=== PATIENT | female | born 1985 | race Hispanic/Latino ===

== ENCOUNTER → 2018-05-18 12:45 | Outpatient (CLI) | payer OTHER, SELFPAY ==
[2018-05-18 11:00] VITALS: BMI 27.3
[2018-05-21 09:51] LABS: HPV APTIMA, High Risk Negative (Negative)
--- OUTSIDE RECORDS SUMMARY | 2018-07-20 15:43 | XMS RPT_ITS ---
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 [place] [address] OFFICE VISIT Date of Service: 05/18/18 MR#: [id number] Acct: [id number] Name: GISSEL PATEL Rep #: [id number] : 1985 Provider: CINDY Velasquez Age/Sex: 33/F [place] [facility] Status: Signed Intake Vital Signs05/18/18 Body Mass Index (BMI) 26.4 05/18/18 Height 5 ft 5 in 05/18/18 Weight: 164 lb 2 oz 05/18/18 Body Mass Index (BMI) 27.3 05/18/18 Blood Pressure 134/74 H Intake Visit Reasons: ANNUAL EXAM, r/s from 05/12 as pt was late Maple Products Maker Required: No Is patient in pain?: No Allergies No Known Allergies Allergy (Verified 05/18/18 10:55) Medications levonorgestrel 0.15 mg-ethinyl estradiol 30 mcg tablets,3 month pack 1 tab PO DAILY #84 tab 05/18/18 [Rx Confirmed 05/18/18] Is last menstrual period known: Yes Last Menstral Period: 04/29/18 Post menopausal: No Patient : No : No PFSH Medical History GERD (gastroesophageal reflux disease) (Acute) Surgical History Nose abnormality (Acute) Family History Grandmother Diabetes Hypertension Father Hypertension Social History current occupational status: employed, student 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 She is planning to stop OCP in June to attempt Last PAP: 2013 History of abnormal PAP: no She is from [place], some language barrier for expression but comprehends well. 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 He also works at [employer]. She has never been . He also does not have other children. Female Reproductive History Last Menstral Period: 04/29/18 Questions: Metorrhagia: No, Sexually active: Yes, Dyspareunia: No, PCB: No ROS Const Constitutional: Denies fatigue, weight gain or weight loss Cardio Card: Denies chest pain Resp Resp: Denies cough or shortness of breath with activity GI GI: Denies abdominal pain, constipation, change in stools, vomiting or bloating : Reports as per HPI; denies urinary frequency, pelvic pain, urinary urgency, vaginal discharge, vaginal itching, urinary incontinence or difficulty urinating Exam Const General: cooperative, healthy appearing, no acute distress, well developed Orientation: alert, oriented to person, oriented to place HENWY Head: normal to inspection Neck Neck: normal visual inspection Thyroid: thyroid normal Lymphatic: no lymphadenopathy noted Chest Breast inspection: normal inspection of the breasts, normal inspection of the axillae Breast palpation: normal palpation of the breasts, normal palpation of the axillae, no axillary lymphadenopathy Resp Effort AND Inspection: normal respiratory effort GI Palpation: soft, nontender, no masses Rectal Exam: deferred External Female Exam: normal external appearance, normal appearance of the urethra Urethra: normal appearance of the urethra, normal palpation Speculum Exam - Vagina: normal appearance of the vagina, normal vaginal discharge Speculum Exam - Cervix: normal appearance of the cervix Bimanual Exam- Vagina AND Uterus: normal bimanual exam, uterine size normal, uterine shape normal, uterus non-tender Bimanual Exam- Adnexa, other: normal adnexae, no adnexal masses, adnexae non-tender, pelvic support normal Pelvic Support: normal Neuro General: alert, oriented x3 Psych Affect: normal affect Assessment AND Plan Problems 1. Encounter for gynecological examination without abnormal finding Z01.419 2. Pap smear for cervical cancer screening Z12.4 3. Encounter for surveillance of contraceptive pills Z30.41 Plan Completed breast and pelvic exam Reviewed diet and exercise Pap thin prep pap with HPV Contraception continue OCP at this time and start vitamin when stops OC Call if no menses after 6 weeks and negative home UPT. RTO 1 year, prn with problems Aliza Velasquez CNP Orders Orders: Medications Refilled: Coding Level of Care Code Off vis,est,prev 18-39yrs Diagnoses Encounter for gynecological examination without abnormal finding Z01.419 Gynecological examination findings: abnormal findings ABSENT Pap smear for cervical cancer screening Z12.4 Encounter for surveillance of contraceptive pills Z30.41 Contraceptive encounter type: surveillance Contraceptive type: pill 05/18/18 1326 <Electronically signed by Aliza BARAJAS> Date Aliza CARTERC Cosigner Signature: Date (if applicable) CC: PAP IG HPV APTIMA Collected: 05/18/2018 Status: F Source: [place] 16/18,45 11:45 AM [facility] REPOSITORY Order Comment: CYTOLOGY INFORMATION: - CLINICAL INFORMATION: - DATE LMP/MENOPAUSE: 04/29/18 - COLLECTION VIAL: Thin Prep Vial - SMUDGER SOURCE: CERVICAL - COLLECTION TECHNIQUE: BRUSH/SPATULA Specimen Comment: [id number] Specimen Comment: Source.............Cervix Specimen Comment: LMP / Prev Treat...[id number]=[id number] Specimen Comment: No. of containers..01 ThinPrep Vial TYPE CODE TESTS RESULT OUT OF RANGE REFERENCE UNITS LAB L7400.0800 . Normal DIAGN Comment Result Comment: NEGATIVE FOR INTRAEPITHELIAL LESION OR MALIGNANCY. LAB L7400.0900 . Normal ADEQ Comment Result Comment: Satisfactory for evaluation. Endocervical and/or squamous metaplastic cells (endocervical component) are present. LAB L7400.1400 . Normal PERFORM Comment Result Comment: Bing Sims, Hoop Riveter (ASCP) LAB L7400.2575 . Normal TEST METHOD Comment Result Comment: This liquid based ThinPrep(R) pap test was screened with the use of an image guided system. LAB L7400.2600 . Normal . COMM LAB L7400.2700 . Normal PAPSMR Comment Result Comment: The Pap smear is a screening test designed to aid in the detection of premalignant and malignant conditions of the uterine cervix. It is not a diagnostic procedure and should not be used as the sole means of detecting cervical cancer. Both false-positive and false-negative reports do occur. LAB L7400.2760 Negative Normal HPV APTIMA, Negative HR Result Comment: This test detects fourteen high-risk HPV types (16/18/31/33/35/39/45/ 51/52/56/58/59/66/68) without differentiation. Performed at: - [facility] [id number] Light Armored Vehicle Officer: Neris Apple MD, Phone: [phone] Performed at: =G - [facility] [address] [id number] Light Armored Vehicle Officer: Neris pAple MD, Phone: [phone] Performed By: #### L7400.0280 #### [facility] (refer to report for specific site) refer to report for address and phone number URGENT CARE VISIT Observed: 05/05/2018 Status: F Source: [place] REPORT 4:54 PM [facility] REPOSITORY [facility] [address] [place] [address] OFFICE VISIT Date of Service: 05/05/18 MR#: [id number] Acct: [id number] Name: GISSEL PATEL Rep #: [id number] : 1985 Provider: John BEATTY Age/Sex: 33/F Location: [facility] Status: Signed Intake Vital Signs05/05/18 Height 5 ft 5 in Intake Visit Reasons: COUGH X 1 MONTH Chief Complaint: Persistant cough Maple Products Maker Required: No Accompanied by: self Allergies No Known Allergies Allergy (Unverified 05/05/18 16:49) Medications levonorgestrel 0.15 mg-ethinyl estradiol 30 mcg tablets,3 month pack 1 tab PO DAILY #84 tab 03/03/18 [Rx Confirmed 05/05/18] azithromycin 250 mg tablet 250 mg PO QDAY #6 tab 05/05/18 [Rx Confirmed 05/05/18] PFSH Medical History GERD (gastroesophageal reflux disease) (Acute) Surgical History Nose abnormality (Acute) Social History current occupational status: employed, student 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 HPI Chief Complaint: Persistant cough Details: GISSEL CHOUDHARY, is a 33 F who presents to the office today for initial evaluation approximately 1 month history of progressively worsening cough, which patient notes is now productive of yellow-green phlegm and is worse at night when lying down. She notes occasional chills though no complaints of fever, sweats, rash, chest pain/shortness of breath/wheezing, or drooling. She is a non-smoker noting no other members in household with similar complaints. She has taken no [id number] products to assist with symptoms. She notes no other associated symptoms and no other alleviating or aggravating factors. ROS Const Constitutional: No other (ROS negative x10 other than as noted above) Exam Const General: cooperative, healthy appearing, no acute distress, comfortable Nutritional Appearance: average body habitus Orientation: alert, awake, oriented x3 HENMT Head: normal to inspection Ears: hearing grossly normal bilaterally, external ears normal, TM's normal bilaterally, EAC's normal Nose: external nose normal, nares normal, septum normal, no nasal discharge Face and sinus: normal facial exam, sinuses nontender, face symmetric Mouth: tongue normal, lip normal, oral mucosae normal Teeth and gingiva: gingiva normal, dentition normal Throat: uvula midline, tonsils normal, posterior oropharynx normal, no postnasal drainage Eyes General: appearance normal, both eyes and all related structures Neck Neck: normal visual inspection, full ROM, no lymphadenopathy, no meningeal signs, supple Neck mass: No Thyroid: thyroid normal Lymphatic: no lymphadenopathy noted Chest Chest palpation AND inspection: normal inspection of the chest Resp Effort AND Inspection: normal respiratory effort, able to speak in complete sentences, symmetric chest movement, cough Quality of cough: wet (Nonproductive in office today) Auscultation: Bilateral: Clear to Auscultation Cardio Palpation: normal PMI Rate: regular rate Rhythm: regular rhythm Heart Sounds: S1 normal, S2 normal, no gallops, no murmurs, no rubs Pulses: radial pulses present GI Inspection: normal to inspection Palpation: soft, no hepatosplenomegaly Skin General: no rashes or lesions noted Neuro General: alert, awake, oriented x3, gait normal Cognition: normal cognition Speech: speech normal Gait: normal gait Motor: muscle tone normal throughout Sensory Exam: no sensory deficits noted Psych Appearance: grossly normal Mental Status: mental status grossly normal Mood: congruent mood Affect: normal affect Speech and Movement: speech and movement normal Attitude: cooperative Thought Process: normal Thought Content: normal Judgment: judgment good Assessment AND Plan Problems 1. Bronchitis J40 Plan Azithromycin as prescribed today. Clear, rest, Advil/Tylenol as needed for symptomatic relief. Avoid tobacco smoke exposure. Follow-up with PCP in 3-5 days should symptoms not improve, sooner should symptoms worsen or any other concerns develop. Patient states acknowledging understanding all the above. This note was generated with Instinctivation software. It may contain incorrect words, spelling, and punctuation that were not noted in checking the note before signing. 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 [place] [address] OFFICE VISIT Date of Service: 03/03/18 MR#: [id number] Acct: [id number] Name: GISSEL PATEL Rep #: [id number] : 1985 Provider: CINDY Velasquez Age/Sex: 32/F [place] [facility] Status: Signed Intake Vital Signs03/03/18 Height 5 ft 6 in 03/03/18 Weight: 166 lb 03/03/18 Body Mass Index (BMI) 26.8 03/03/18 Blood Pressure 120/80 Intake Visit Reasons: irregular period - lasting 2 weeks so far Maple Products Maker Required: No Is patient in pain?: No Allergies No Known Allergies Allergy (Unverified 03/03/18 10:23) Medications levonorgestrel 0.15 mg-ethinyl estradiol 30 mcg tablets,3 month pack 1 tab PO DAILY #84 tab 03/03/18 [Rx Confirmed 03/03/18] Is last menstrual period known: Yes Last Menstral Period: 02/18/18 Post menopausal: No Patient : No : No PFSH Medical History GERD (gastroesophageal reflux disease) (Acute) Surgical History Nose abnormality (Acute) Social History current occupational status: employed, student 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 She has stopped and started her pills 3 times over last 5 months to take only while he is home. Prior to this had regular menses. She is again in first pack, 3rd week and has had spotting most of month. She took OCP in December, skipped a cycle and then restarted with this one. Female Reproductive History Last Menstral Period: 02/18/18 Pregancy History 0 Elective abortions Hx Para Spontaneous abortions ROS Const Constitutional: Reports system reviewed and no additional complaints, except as docu GI GI: Denies abdominal pain or change in bowel habits Exam Const General: no acute distress Nutritional Appearance: well nourished Orientation: oriented x3 Assessment AND Plan Problems 1. Irregular menses N92.6 2. Encounter for surveillance of contraceptive pills Z30.41 Plan Discussed with patient that starting and stopping OCP will cause her to have irregular menses. Stop current pack, start new pack this Thursday. Condoms now and next 2 weeks and encouraged to continue pills until she decides to attemp . They may consider next year. Start PNV if stops OCP RTO for follow up and annual exam in Apr 2018 20 min FTF counseling with patient. Medications New: Coding Level of Care Code Off vis,new,level 3 Diagnoses Irregular menses N92.6 Encounter for surveillance of contraceptive pills Z30.41 Contraceptive type: pill Contraceptive encounter type: surveillance 03/03/18 1242 <Electronically signed by Aliza BARAJAS> Date Aliza BARAJAS Cosigner Signature: Date (if applicable) CC: ALLERGIES ALLERGIES DATE TYPE / CODE NAME / CODE REACTION SEVERITY SOURCE 05/18/2018 Drug No Known Unknown [facility] Allergy/4160 Allergies/F00 Hospital 23611(SNOMED [id number](RXNOR Repository CT) M) ENCOUNTERS ENCOUNTERS ADMIT/DISCHARGE ACCOUNT ADMITTING ENCOUNTER LOCATION SOURCE NUMBER CLASS 05/21/2018 [id number] Ambulatory [place] 1 [facility] ing:PAVLAB Repository 05/18/2018 [id number] Ambulatory [place] 4 [facility] ing:LABSPEC Repository 05/18/2018/ [id number] Ambulatory [facility] [place] [facility] 9 [facility] Repository 05/05/2018/ [id number] Ambulatory BMSBuilding:B [place] 9 0 [facility] Repository 03/03/2018/ [id number] Ambulatory BMSBuilding:B [place] 8 4 [facility] Repository PAYERS PAYERS ENCOUNTER GUARANTOR PAYER SUBSCRIBER SOURCE 05/21/2018 GISSEL [place] Primary Insurance:[facility] GISSEL Martínezoster [id number] STUDENT PULIDODOB: [facility] CTAPT RESOURCESPolic [id number], [place] Number: Repository [id number]: [phone] [phone] () Date:9316-60-49[address], [place] [address]KG: 05/21/2018 Secondary NOT GIVENUNK [place] Insurance:SELF PAY [facility] Number: Effective Repository Date:2018-05-21 05/18/2018 GISSEL [place] Primary Insurance:[facility] GISSEL P TRAN [place] [id number] STUDENT PULIDODOB: [facility] [id number], [place] Number: Repository [id number]: [phone] [phone] () Date:9915-96-19SE [address], [place] [address]QU: 05/18/2018 Secondary NOT GIVENUNK [place] Insurance:SELF PAY [facility] Number: Effective Repository Date:2018-05-18 05/18/2018 GISSEL [place] Primary Insurance:[facility] GISSEL Branch TRAN [place] [id number] STUDENT PULIDODOB: [facility] [id number], [place] Number: Repository [phone]: [phone] [phone] () Date:6422-71-33TJ [facility] [address], [place] [address]YF: 05/18/2018 Secondary NOT GIVENUNK [place] Insurance:SELF PAY [facility] Number: Effective Repository Date:2018-05-18 05/05/2018 GISSEL [place] Primary Insurance:[facility] GISSEL P TRAN [place] [id number] STUDENT PULIDODOB: [facility] 1834-04-19[place], [place] Number: Repository [id number]: [phone] [phone] () Date:8088-56-50SR [address], [place] [address]HO: 05/05/2018 Secondary NOT GIVENUNK [place] Insurance:SELF PAY [facility] Number: Effective Repository Date:2018-05-05 03/03/2018 GISSEL [place] Primary Insurance:[facility] GISSEL Guzman [id number] STUDENT PULIDODOB: [facility] [id number], [place] Number: Repository [id number]: [phone] [phone] () Date:2996-25-62[address], [place] [address]ZM: 03/03/2018 Secondary NOT GIVENIVONE [place] Insurance:SELF PAY [facility] Number: Effective Repository Date:2018-03-03
--- OUTSIDE RECORDS SUMMARY | 2018-07-20 16:53 | XMS RPT_ITS ---
:1985 Author Organization OH[facility] Care Team Providers Name Role Phone John Joiner Attending Unavailable RnoAliza Attending Unavailable Burden, Molly Attending Unavailable Aliza Velasquez Referring Unavailable Primay Care Physicia, No Primary Care Unavailable Aliza Velasquez Attending Unavailable Primay Care Physicia, No Primary Care Unavailable Aliza Velasquez Attending Unavailable PROBLEMS PROBLEMS No Problem Records FoundPROCEDURES PROCEDURES No Procedure Records FoundRESULTS RESULTS X RAY NURSE OFFICE VISIT Observed: 05/18/2018 Status: F Source: [place] REPORT 1:26 PM [facility] REPOSITORY [facility] [address] 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 She is planning to stop OCP in June to attempt Last PAP: 2013 History of abnormal PAP: no She is from [place], some language barrier for expression but comprehends well. 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 He also works at [employer]. She has never been . He also [...] alert, oriented to person, oriented to place HENOK Head: normal to inspection Neck Neck: normal [...] Status: F Source: [place] 16/18,45 11:45 AM [facility] REPOSITORY Order Comment: CYTOLOGY INFORMATION: - CLINICAL INFORMATION: - DATE LMP/MENOPAUSE: 04/29/18 - COLLECTION VIAL: Thin Prep Vial - GLUE WHEEL OPERATOR SOURCE: CERVICAL - COLLECTION TECHNIQUE: BRUSH/SPATULA Specimen Comment: [id number] Specimen Comment: Source.............Cervix Specimen Comment: LMP / Prev Treat...[id number] Specimen Comment: No. of containers..01 ThinPrep Vial TYPE CODE TESTS RESULT OUT OF RANGE REFERENCE UNITS LAB L7400.0800 . Normal DIAGN Comment Result Comment: NEGATIVE FOR INTRAEPITHELIAL LESION OR MALIGNANCY. LAB L7400.0900 . Normal ADEQ Comment Result Comment: Satisfactory for evaluation. Endocervical and/or squamous metaplastic cells (endocervical component) are present. LAB L7400.1400 . Normal PERFORM Comment Result Comment: Bing Sims, Transit Department Clerk (ASCP) LAB L7400.2575 . Normal TEST METHOD [...] (16/18/31/33/35/39/45/ 51/52/56/58/59/66/68) without differentiation. Performed at: - [facility] [id number] Secretary To The Vice President: Neris Apple MD, Phone: [phone] Performed at: =G - [facility] [address] [id number] Secretary To The Vice President: Neris Apple MD, Phone: [phone] Performed By: #### L7400.0280 #### [facility] (refer to report for specific site) refer to report for address and phone number URGENT CARE VISIT Observed: 05/05/2018 Status: F Source: [place] REPORT 4:54 PM [facility] REPOSITORY [facility] [address] [place] [address] OFFICE VISIT Date of Service: 05/05/18 MR#: [id number] Acct: [id number] Name: GISSEL PATEL Rep #: [id number] : 1985 Provider: John BEATTY Age/Sex: 33/F Location: [facility] Status: Signed Intake Vital Signs05/05/18 Height 5 ft 5 in Intake Visit Reasons: COUGH X 1 MONTH Chief Complaint: Persistant cough Bonderizer Required: No Accompanied by: self Allergies No [...] current occupational status: employed, student 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 She has taken no dizp-xky-hkhvdmx products to assist with symptoms. She notes [...] the above. This note was generated with [employer]ation software. It may contain incorrect words, spelling, [...] BEATTY Cosign Signature: Date (if applicable) CC: X RAY NURSE OFFICE VISIT Observed: 03/03/2018 Status: F Source: [place] REPORT 12:42 PM [facility] 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[employer] 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 Smoking Status: Never smoker alcohol intake: never substance use type: does not use seatbelt use: always do you feel safe at home: Yes additional social history: Narinder in the service [facility] irregular period - lasting 2 weeks so [...] SEVERITY SOURCE 05/18/2018 Drug No Known Unknown [facility] Allergy/4160 Allergies/F00 Hospital 34608(SNOMED [id number](RXNOR Repository CT) M) ENCOUNTERS ENCOUNTERS ADMIT/DISCHARGE ACCOUNT ADMITTING ENCOUNTER LOCATION SOURCE NUMBER CLASS 05/21/2018 [id number] Ambulatory [place] 1 [facility] ing:PAVLAB Repository 05/18/2018 [id number] Ambulatory [place] 4 [facility] ing:LABSPEC Repository 05/18/2018/ [id number] Ambulatory [facility]MS[facility]:B [place] 9 9 [facility] Repository 05/05/2018/ [id number] Ambulatory BMSBuilding:B [place] 9 0 [facility] Repository 03/03/2018/ [id number] Ambulatory BMSBuilding:B [place] 8 4 [facility] Repository PAYERS PAYERS ENCOUNTER GUARANTOR PAYER SUBSCRIBER SOURCE 05/21/2018 GISSEL [place] Primary Insurance:[facility] GISSEL Martínezoster [id number] STUDENT PULIDODOB: [facility] CTAPT RESOURCESPolic [id number] Number: Repository [id number]: [phone] [phone] () Date:5130-86-25[address], [place] [address]MG: 05/21/2018 Secondary NOT GIVENUNK [place] Insurance:SELF PAY [facility] Number: Effective Repository Date:2018-05-21 05/18/2018 GISSEL [place] Primary Insurance:[facility] GISSEL P RTAN [place] [id number] STUDENT PULIDODOB: [facility] [id number] Number: Repository [id number]: [phone] [phone] () Date:5236-70-75[address]WF, [place] [address]IJ: 05/18/2018 Secondary NOT GIVENUNK [place] Insurance:SELF PAY [facility] Number: Effective Repository Date:2018-05-18 05/18/2018 GISSEL [place] Primary Insurance:[facility] GISSEL Branch TRAN [place] [id number] STUDENT PULIDODOB: [facility] [id number] Number: Repository [id number]: [phone] [id number] [phone] () Date:9157-50-96IT [facility] [place], [place] [address]NP: 05/18/2018 Secondary NOT GIVENUNK [place] Insurance:SELF PAY [facility] Number: Effective Repository Date:2018-05-18 05/05/2018 GISSEL [place] Primary Insurance:[facility] GISSEL P TRAN [place] [id number] STUDENT PULIDODOB: [facility] 2922-23-[place] Number: Repository [id number]: [id number] [phone] () Date:2166-36-91[address]X [address]DNG, [place] [address]VX: 05/05/2018 Secondary NOT GIVENUNK [place] Insurance:SELF PAY [facility] Number: Effective Repository Date:2018-05-05 03/03/2018 GISSEL [place] Primary Insurance:[facility] GISSEL Guzman [id number] STUDENT PULIDODOB: [facility] [id number] Number: Repository [id number]: [phone] [id number] [phone] () Date:0079-35-47HY [address]X, [place] [address]MR: 03/03/2018 Secondary NOT GIVENIVONE [place] Insurance:SELF PAY [facility] Number: Effective Repository Date:2018-03-03
== END ==
PROVIDERS: Referring Provider Nurse Practitioner Women's Health; Visit Provider Nurse Practitioner Women's Health
DX: Z12.4 Encounter for screening for malignant neoplasm of cervix (principal)
CPT/HCPCS: 87624; 88175; G0145

== ENCOUNTER → 2018-06-04 10:26 | Outpatient (CLI) | payer OTHER, SELFPAY ==
[2018-05-21 09:48] VITALS: BMI 27.3
[2018-06-04 11:12] LABS: Cholesterol 147 mg/dL (200); Glucose 97 mg/dL (74-106); High Density Lipoprotein 46 mg/dL; Thyroid Stim Hormone (TSH) 2.19 uIU/mL (0.358-3.74); Triglycerides 70 mg/dL; Very Low Density Lipoprotein 14 mg/dL (5-40)
== END ==
PROVIDERS: Referring Provider Nurse Practitioner Women's Health; Visit Provider Nurse Practitioner Women's Health
DX: Z00.00 Encounter for general adult medical examination without abnormal findings (principal)
CPT/HCPCS: 36415; 80061; 82947; 84443

== ENCOUNTER → 2019-01-14 13:03 | Outpatient (CLI) | payer OTHER, SELFPAY ==
[2019-01-11 15:16] VITALS: BMI 27.3
[2019-01-14 14:07] LABS: Absolute Lymphocyte Count 1.78 X10^3/uL (0.83-4.51); Absolute Neutrophil Count 4.3 X10^3/uL (2.0-7.7); Basophil# 0.02 X10^3/uL; Basophil% 0.3 % (0-1); Eosinophil# 0.17 X10^3/uL; Eosinophils% 2.5 % (0-5); Hemoglobin 13.4 g/dL (12.0-15.0); Lymphocyte # 1.78 X10^3/ul (4.0); Lymphocyte % 25.8 % (19-41); Mean Corp Hgb Conc 34.4 g/dL (32-36); Mean Corpuscular Hgb 32.1 pg (27.0-32.0); Mean Corpuscular Volume 93.5 fL (81-99); Mean Platelet Vol. 10.4 fl (6.2-12.0); Monocyte# 0.61 X10^3/uL; Monocyte% 8.8 % (0-10); NRBC Flagged by Analyzer 0 % (0-5); Neutrophil # 4.31 X10^3/uL (2.7-7.7); Neutrophil % 62.3 % (47-70); POSITIVE MORPHOLOGY YES; Platelet Count 221 K/mm3 (150-450); RBC Distribution Width CV 12.1 % (11.6-14.6); RBC Distribution Width SD 42.1 fl (35.1-43.9); Red Blood Count 4.17 M/mm3 (4.2-5.4); White Blood Count 6.9 K/mm3 (4.4-11.0)
[2019-01-14 14:17] LABS: Differential Indicated SCAN CRITERIA MET
[2019-01-14 14:23] LABS: Alkaline Phosphatase 77 U/L (45-117); Amylase 36 U/L (25-115); Lipase 84 U/L (73-393)
[2019-01-14 14:56] LABS: Platelet Estimate ADEQUATE (ADEQ); Red Cell Morphology NORM C+C NORMAL (NORM C&C)
== END ==
LOC: MTRAD 12:23 → MTLAB 13:04
PROVIDERS: Family Provider Family Medicine; PCP Family Medicine; Referring Provider Family Medicine; Visit Provider Family Medicine
DX: R10.9 Unspecified abdominal pain (principal)
CPT/HCPCS: 36415; 82150; 83690; 84075; 85025

== ENCOUNTER 2019-01-27 08:48 | Emergency (ER) | payer OTHER, SELFPAY ==
[2019-01-11 15:16] VITALS: BMI 27.3
[2019-01-27 08:50] VITALS: BP 109/62; PULSE 72; RESP 14; TEMP 35.9; O2SAT 97; BMI 24.7
--- NOTE | 2019-01-27 09:27 | ED.VISSUMM ---
- ER Visit Summary Date of Service: 01/27/19 Chief Complaint: Abdominal pain History of Present Illness: The patient is a 33 F who presents with abdominal pain that is been getting worse over the past 2 weeks. Patient states the pain is over the upper abdomen. Patient states she was diagnosed with 2 weeks ago. Patient states she is approximately 8 weeks . Patient is currently taking Nexium and Zofran with no relief. Patient states she does have some burning up into her chest. Patient admits to some nausea and vomiting. Patient states she is vomiting some mucus. Patient denies any diarrhea. Patient does admit to some constipation. Patient denies any urinary complaints. Physical Examination: Vital signs are stable. Patient is afebrile. Patient is in no acute distress. Oral mucosa is pink and moist. Neck is supple. Trachea is midline. There is no JVD noted. Heart was regular rate and rhythm. Lungs are clear and equal bilaterally. Abdomen is soft. Bowel sounds are normal. There is mild upper abdominal tenderness. There is no rebound or guarding noted. Skin is warm dry. Cranial nerves II through XII are intact. There are no focal motor or sensory deficits noted. Test Results: CBC, comprehensive metabolic profile, and lipase were obtained and were all within normal limits. Quantitative hCG was 156,699. Emergency Department Course and Treatment: Patient was given a GI cocktail here. Patient was feeling somewhat better on reevaluation. Patient was instructed to continue her Nexium as previously prescribed. Patient was instructed to continue Tums as needed. Patient was instructed to follow-up with her primary care physician and ORTHOPEDICS TEACHER in 3 to 5 days. Patient understood and was agreeable with the plan. All questions were answered. Disposition: Discharge home Impression: 1. Nausea and vomiting 2. This note was generated with [employer] software. It may contain incorrect words, spelling, and punctuation that were not noted in review of the chart prior to signing ED Disposition - Plan for ED Patient: Disposition: Home or Assisted Living Diagnosis: Nausea and vomiting, First trimester Instructions: DIET, Vomiting or Diarrhea [4yr-Adult] Referrals: Osmany Bojorquez MD [Primary Care Provider] - 3-5 Days
[2019-01-27] MEDS: 0.9% Normal Saline 1,000 ML 1000 ML IV (09:28)
[2019-01-27] MEDS: Ondansetron 4 MG/2 ML Vial IV (09:29)
[2019-01-27] MEDS: Mag Hydrox/Al Hydrox/Simeth 30 ML UDC PO (09:29)
[2019-01-27 09:46] LABS: Absolute Lymphocyte Count 1.56 X10^3/uL (0.83-4.51); Absolute Neutrophil Count 4.3 X10^3/uL (2.0-7.7); Basophil# 0.01 X10^3/uL; Basophil% 0.2 % (0-1); Eosinophils% 1.5 % (0-5); Hematocrit 37.9 % (37-47); Lymphocyte # 1.56 X10^3/ul (4.0); Lymphocyte % 23.6 % (19-41); Mean Corp Hgb Conc 34.3 g/dL (32-36); Mean Corpuscular Hgb 32.5 pg (27.0-32.0); Mean Corpuscular Volume 94.8 fL (81-99); Mean Platelet Vol. 10.6 fl (6.2-12.0); Monocyte# 0.61 X10^3/uL; Monocyte% 9.2 % (0-10); NRBC Flagged by Analyzer 0 % (0-5); Neutrophil % 65.2 % (47-70); Platelet Count 191 K/mm3 (150-450); RBC Distribution Width CV 12.2 % (11.6-14.6); RBC Distribution Width SD 42.5 fl (35.1-43.9); White Blood Count 6.6 K/mm3 (4.4-11.0)
[2019-01-27 10:02] LABS: AST(SGOT) 12 U/L (15-37); Alanine Aminotransfer ALT/SGPT 30 U/L (13-56); Albumin, Serum 3.7 g/dL (3.2-5.0); Alkaline Phosphatase 65 U/L (45-117); Anion Gap 6 (5-15); BUN 11 mg/dL (7-18); BUN/Creat Ratio 17.3 RATIO (10-20); Calcium,Total 8.7 mg/dL (8.5-10.1); Chloride 107 mmol/L (98-107); Creatinine, Serum 0.64 mg/dL (0.55-1.02); EST Glomerular Filtration Rate 113 mL/min (>60); Est Glom Filt Rate - Afr Amer 136 mL/min (>60); Estimated Creatinine Clearance 114.86 ml/min; Globulin 3.6 g/dL (2.2-4.2); Glucose 96 mg/dL (74-106); Lipase 212 U/L (73-393); Potassium 3.6 mmol/L (3.5-5.1); Protein, Total 7.3 g/dL (6.4-8.2); Sodium Level 138 mmol/L (136-145)
[2019-01-27 11:26] VITALS: BP 131/62; PULSE 71; RESP 15; O2SAT 98
== END 2019-01-27 11:27 | disposition home or self-care (01) ==
PROVIDERS: Emergency Provider Emergency Medicine; Family Provider Family Medicine; PCP Family Medicine
DX: O26.891 Other specified pregnancy related conditions, first trimester (principal); R11.2 Nausea with vomiting, unspecified; R10.10 Upper abdominal pain, unspecified; K59.00 Constipation, unspecified; R51 Headache; R06.00 Dyspnea, unspecified; R07.89 Other chest pain; O99.611 Diseases of the digestive system complicating pregnancy, first trimester; K21.9 Gastro-esophageal reflux disease without esophagitis; Z3A.08 8 weeks gestation of pregnancy
CPT/HCPCS: 80053; 83690; 84702; 85025; 96361; 96374; 99283; J7030; J2405